=== PATIENT | male | born 1995 | race Hispanic/Latino ===

== ENCOUNTER 2020-04-06 01:37 | Emergency (ER) | payer BC | END 2020-04-06 02:49 | disposition home or self-care (01) | LOC: EDH 01:37 | DX: U07.1 COVID-19 (principal); R43.8 Other disturbances of smell and taste; J45.909 Unspecified asthma, uncomplicated; Z79.899 Other long term (current) drug therapy | CPT/HCPCS: 36415; 99283; U0003 ==